=== PATIENT | male | born 1960 | race Caucasian/White ===

== ENCOUNTER 2016-07-27 11:02 | Outpatient (CLI) | payer OTHER ==
--- NOTE | 2016-07-27 11:38 | DIAGNOSTIC IMAGING REPORT ---
PROCEDURE: CT ABDOMEN/PELVIS W/O CONTRAST INDICATION: Urinary urgency and painful urination with gross hematuria x2 weeks. Initial encounter. TECHNIQUE: Noncontrast axial images were obtained of the entire abdomen and pelvis with sagittal and coronal reformations. COMPARISON: None. FINDINGS: ABDOMEN: Lung base are clear. Heart size is normal. Pericardial thickening. 5 mm low density in the left hepatic lobe lesion, indeterminate but likely small cysts or hemangioma. The gallbladder, pancreas, spleen and adrenal glands are normal. 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 Normal right kidney and ureters. Mild atherosclerosis. Nonspecific bowel gas pattern. PELVIS: Mild wall thickening of the bladder at the left posterolaterally. Mildly enlarged prostate (4.8 cm) . Normal appendix. No free fluid. 1.5 cm fat-containing umbilical hernia. Small bilateral fat filled inguinal hernias. Mild to moderate degenerative changes of the spine. IMPRESSION: 1. Mild urinary bladder wall thickening left posterolaterally which may indicate inflammatory changes (cystitis) or neoplasm. Recommend cystoscopy. 2. Left pelvic kidney with malrotation 3. No evidence of urinary calculi 4. Results discussed with Dr. Addison All CT scans at this facility use dose modulation, iterative reconstruction, and/or weight-based dosing when appropriate to reduce radiation dose to as low as reasonably achievable.
== END 2016-07-27 23:00 ==
LOC: CT SRH 11:02
DX: R31.9 Hematuria, unspecified (principal); Q63.2 Ectopic kidney